=== PATIENT | female | born 1970 | race Caucasian/White ===

== ENCOUNTER 2018-03-29 07:05 | Outpatient (CLI) | payer BC ==
--- NOTE | 2018-03-29 08:02 | ULT ---
SONOGRAM RIGHT UPPER QUADRANT: Date: 03/29/18 HISTORY: Right upper quadrant pain. FINDINGS: Small amount of nonshadowing debris layers within the dependent portion of the gallbladder lumen. The re is no gallbladder wall thickening or pericholecystic fluid. Common duct is 0.3 cm. Liver unremarka ble without focal mass or intrahepatic biliary dilatation. No free fluid. IMPRESSION: Small amount of biliary sludge is consistent with chronic gallbladder dyskinesis. No evidence of acut e biliary obstruction. POS: [facility]
== END 2018-03-29 07:06 | disposition home or self-care (01) ==
LOC: SCSULT 07:05
PROVIDERS: ATTEND Family Medicine
DX: R10.811 Right upper quadrant abdominal tenderness (principal); K83.8 Other specified diseases of biliary tract
CPT/HCPCS: 76705

== ENCOUNTER 2018-05-01 07:30 | Outpatient (CLI) | payer BC ==
[2018-05-01] MEDS ORDERED: Iopamidol 300 61% 100 ML VIAL FS ONE (09:00)
--- NOTE | 2018-05-01 10:05 | CT ---
CT ABDOMEN AND PELVIS WITH IV CONTRAST: HISTORY: Right upper quadrant pain for eight months, becoming more frequent. FINDINGS: The lung bases are clear. The visualized liver is unremarkable, except for a very tiny, less than 0. 5 cm, low attenuation focus, statistically a tiny cyst. The gallbladder, pancreas, spleen, and adren al glands are unremarkable. There is a small left lower pole nonobstructing renal calculus. No evid ence for acute obstruction. IUD in place within the uterus. A 2.2 cm left adnexal cyst or possib ly a focal hydrosalpinx. No CT evidence for acute appendicitis. IMPRESSION: 1. A normal appendix is not anatomically demonstrated, but there is no convincing CT evidence for ac victor manuel appendicitis. 2. Small, circumscribed, cystic focus in the left adnexa, possibly a small ovarian cyst or focal hyd rosalpinx. 3. Small, nonobstructing left renal calculus. 4. Very tiny liver cysts. 5. No evidence for other significant acute process. POS: [facility]
== END 2018-05-01 07:31 | disposition home or self-care (01) ==
LOC: SCSCT 07:30
PROVIDERS: ATTEND Internal Medicine Gastroenterology
DX: R10.9 Unspecified abdominal pain (principal); N20.0 Calculus of kidney; K76.89 Other specified diseases of liver
CPT/HCPCS: 74177